=== PATIENT | male | born 1990 | race Caucasian/White ===

== ENCOUNTER 2019-11-19 05:38 | Emergency (ER) | payer SELFPAY ==
--- NOTE | 2019-11-19 05:52 | NUR ---
PT REFUSED TO STAY TO BE TRIAGED. PT DECIDED TO LEAVE WHEN INFORMED BY SECURITY THAT DOG COULD NOT STAY WITH HIM
== END 2019-11-19 05:54 | disposition left against medical advice (07) ==
LOC: ED 05:51
DX: M25.561 Pain in right knee (principal); M79.89 Other specified soft tissue disorders; Z53.21 Procedure and treatment not carried out due to patient leaving prior to being seen by health care provider

== ENCOUNTER 2019-11-20 06:23 | Emergency (ER) | payer MEDICAID, OTHER ==
[~2019-11-20] VITALS: Ht 172.7 cm; Wt 56.7 kg
[2019-11-20 06:28] VITALS: BP 118/79
--- NOTE | 2019-11-20 06:36 | NUR ---
MD AT BEDSIDE TO ASSESS PT
[2019-11-20] MEDS ORDERED: IBUPROFEN 200 MG TABLET PO ONE (07:00)
[2019-11-20] MEDS ORDERED: IBUPROFEN 600 MG TABLET PO ONE (07:00)
[2019-11-20] MEDS ORDERED: IBUPROFEN 600 MG TABLET ONE (07:08)
--- NOTE | 2019-11-20 07:12 | NUR ---
Patient/Caregiver given discharge instructions and they have confirmed that they understand the instructions. Patient ambulatory with steady gait.
== END 2019-11-20 07:13 | disposition home or self-care (01) ==
LOC: ED 06:42
DX: S93.491A Sprain of other ligament of right ankle, initial encounter (principal); X50.1XXA Overexertion from prolonged static or awkward postures, initial encounter; Y93.89 Activity, other specified; Y92.89 Other specified places as the place of occurrence of the external cause; Y99.8 Other external cause status
CPT/HCPCS: 99283

== ENCOUNTER 2020-07-05 13:19 | Emergency (ER) | payer MEDICAID ==
[~2020-07-05] VITALS: Ht 172.7 cm; Wt 61.7 kg
--- NOTE | 2020-07-05 13:35 | NUR ---
pt to room, no distress
[2020-07-05 14:37] VITALS: BP 112/62
--- NOTE | 2020-07-05 14:39 | NUR ---
pt walked out self, vss, no distress
== END 2020-07-05 14:41 | disposition home or self-care (01) ==
LOC: ED 14:19
DX: J34.89 Other specified disorders of nose and nasal sinuses (principal)
CPT/HCPCS: 99282

== ENCOUNTER 2020-11-22 02:47 | Emergency (ER) | payer MEDICAID ==
[~2020-11-22] VITALS: Ht 172.7 cm; Wt 59.7 kg
[2020-11-22 02:49] VITALS: BP 135/86
[2020-11-22] MEDS ORDERED: PROPARACAINE OPHTH 0.5%, 15ML ONE (02:58)
[2020-11-22] MEDS ORDERED: FLUORESCEIN OPHTHALMIC 1 MG STRIP ONE (02:58)
--- NOTE | 2020-11-22 03:01 | NUR ---
Alcaine, flurecein strips.
== END 2020-11-22 03:32 | disposition home or self-care (01) ==
LOC: ED 03:25
DX: T15.91XA Foreign body on external eye, part unspecified, right eye, initial encounter (principal); F17.200 Nicotine dependence, unspecified, uncomplicated; X58.XXXA Exposure to other specified factors, initial encounter; Y93.89 Activity, other specified; Y92.89 Other specified places as the place of occurrence of the external cause; Y99.8 Other external cause status
CPT/HCPCS: 99283